=== PATIENT | male | born 1990 | race Caucasian/White ===

== ENCOUNTER 2017-07-10 02:11 | Emergency (ER) | payer OTHER ==
[2017-07-10] MEDS ORDERED: TORAdol 30 mg Injection IM ONE (02:27)
[2017-07-10] MEDS ORDERED: TORAdol 30 mg Injection ONE (02:49)
--- NOTE | 2017-07-10 02:53 | ERPHSYRPT ---
- History of Present Illness Time Seen by Provider: 07/10/17 02:47 Source: patient Exam Limitations: no limitations Patient Subjective Stated Complaint: pt states he was lifting at work, approx 50lb panels over his head and heard a pop and began having rt shoulder pain. states he saw the nurse at work who gave him some aleve and icy hot Triage Nursing Assessment: pt alert and oriented, asnwers questions approp. pt ambulatory with steady gait noted. respriations nonlabored with lungs cta. pt guarding rt shoulder and holding rt arm against side. radial pulse, cap refill, sensations to rt arm wnl. Physician History: 27 y/o male comes to the ER after lifting 50 lb pellet over his head and had right shoulder pain. Pt describes the pain as sharp, constant, 5/10, worse with movement and not relieved by advil. Occurred: just prior to arrival Method of Injury: other (over the head injury) Quality: constant Severity of Pain-Max: moderate Severity of Pain-Current: moderate Extremities Pain Location: shoulder: right Modifying Factors: Improves With: movement Associated Symptoms: none Allergies/Adverse Reactions: No Known Drug Allergies Allergy (Verified 07/10/17 02:27) Hx Tetanus, Diphtheria Vaccination/Date Given: Yes Hx Influenza Vaccination/Date Given: No Hx Pneumococcal Vaccination/Date Given: No Immunizations Up to Date: Yes - Review of Systems Constitutional: No Fever, No Chills Eyes: No Symptoms Ears, Nose, & Throat: No Symptoms Respiratory: No Cough, No Dyspnea Cardiac: No Chest Pain, No Edema, No Syncope Abdominal/Gastrointestinal: No Abdominal Pain, No Nausea, No Vomiting, No Diarrhea Genitourinary Symptoms: No Dysuria Musculoskeletal: Joint Pain, No Back Pain, No Neck Pain Skin: No Rash Neurological: No Dizziness, No Focal Weakness, No Sensory Changes Psychological: No Symptoms Endocrine: No Symptoms All Other Systems: Reviewed and Negative - Past Medical History Pertinent Past Medical History: No - Past Surgical History Past Surgical History: Yes Neuro Surgical History: No Pertinent History Cardiac: No Pertinent History Respiratory: No Pertinent History Gastrointestinal: No Pertinent History Genitourinary: No Pertinent History Musculoskeletal: Orthopedic Surgery Male Surgical History: No Pertinent History - Social History Smoking Status: Former smoker Exposure to second hand smoke: No Drug Use: none Patient Lives Alone: No - Nursing Vital Signs Nursing Vital Signs: Initial Vital Signs Temperature 97.6 F 07/10/17 02:14 Pulse Rate 81 07/10/17 02:14 Respiratory Rate 16 07/10/17 02:14 Blood Pressure 129/79 07/10/17 02:14 O2 Sat by Pulse Oximetry 99 07/10/17 02:14 Pain Scale Pain Intensity 5 - Physical Exam General Appearance: alert Eyes, Ears, Nose, Throat Exam: moist mucous membranes Neck Exam: non-tender, supple Cardiovascular/Respiratory Exam: chest non-tender, normal breath sounds, regular rate/rhythm, no respiratory distress Abdominal Exam: non-tender, No guarding Back Exam: normal inspection, No vertebral tenderness Shoulder Exam: bone tenderness, limited ROM Neuro/Tendon Exam: normal sensation, normal motor functions Mental Status Exam: alert, oriented x 3, cooperative Skin Exam: normal color, warm, dry SpO2: 99 Oxygen Delivery: Room Air - Course Nursing assessment & vital signs reviewed: Yes Ordered Tests: Active Orders 24 hr Category Date Time Status SHOULDER Stat Exams 07/10/17 Ordered Medication Summary Discontinued Medications Generic Name Dose Route Start Last Admin Trade Name Estefany PRN Reason Stop Dose Admin Ketorolac Tromethamine 60 mg 07/10/17 02:27 Toradol 30 Mg Injection IM 07/10/17 02:28 STAT ONE - Progress Progress: improved Progress Note: 07/10/17 02:50 The shoulder x ray is negative for fracture. Pt will be d/c home on toradol for pain. - Departure Time of Disposition: 02:51 Departure Disposition: Home Clinical Impression: Shoulder strain Qualifiers: Encounter type: initial encounter Laterality: right Qualified Code(s): S46.911A - Strain of unspecified muscle, fascia and tendon at shoulder and upper arm level, right arm, initial encounter Condition: Stable Critical Care Time: No Referrals: DOCTOR,NO FAMILY [Primary Care Provider] - Instructions: Shoulder Sprain Additional Instructions: Follow up with your primary care doctor for any further recommendations. Prescriptions: Ketorolac Tromethamine [Toradol] 10 mg PO QID PRN #20 tablet PRN Reason: Pain
[2017-07-10 03:13] VITALS: BP 117/77; PULSE 78; O2SAT 98
--- NOTE | 2017-07-10 08:50 | XRAY ---
Indication: Pain following injury. Comparison: None 3 views of the right shoulder demonstrates normal bones, articulation, and soft tissues.
== END 2017-07-10 03:12 | disposition home or self-care (01) ==
LOC: ED 02:11
DX: S46.911A Strain of unspecified muscle, fascia and tendon at shoulder and upper arm level, right arm, initial encounter (principal); X50.0XXA Overexertion from strenuous movement or load, initial encounter; Y92.63 Factory as the place of occurrence of the external cause; Y99.0 Civilian activity done for income or pay
CPT/HCPCS: 73030; 96372; 99284; J1885

== ENCOUNTER 2017-09-27 22:25 | Emergency (ER) | payer OTHER ==
[2017-09-27 22:40] VITALS: O2SAT 99
[2017-09-27] MEDS ORDERED: NORCO 5/325 MG PO ONE (22:55)
--- NOTE | 2017-09-27 23:01 | ERPHSYRPT ---
- History of Present Illness Time Seen by Provider: 09/27/17 22:45 Source: patient Exam Limitations: no limitations Patient Subjective Stated Complaint: reports foot pain since friday. states friday he walked 3 miles to [employer] and he thought that was why they hurt. states pain has not improved. reports pain is worse when he stands or walks. Triage Nursing Assessment: pt is aox3, ambulatory to cot with no difficulties, pupils perrl, resps are easy and non labored, skin pink warm and dry. pedal pulses strong and equal bilat, no edema apprectied. pt has good ROM to bilat lower extremities, sensation is intact. cap refill < 3 secs. Physician History: FOR THE PAST 4 DAYS PT HAS HAD BILATERAL HEEL PAIN AFTER WALKING 3 MILES IN WORK BOOTS TO [employer] THE DAY PRIOR TO SYMPTOMS. PT DENIES ANY TRAUMA TO THE LOWER EXTREMITIES AND DENIES NUMBNESS. ALSO PT HAS HAD PAIN IN THE LEFT ELBOW/ FOREARM SINCE YESTERDAY AFTER HIS GIRLFRIEND TWISTED HIS LEFT ARM WHILE SHE WAS IN LABOR. PT DENIES FEVER, VOMITING, BACK PAIN. Allergies/Adverse Reactions: No Known Drug Allergies Allergy (Verified 09/27/17 22:40) Hx Tetanus, Diphtheria Vaccination/Date Given: Yes Hx Influenza Vaccination/Date Given: No Hx Pneumococcal Vaccination/Date Given: No Immunizations Up to Date: Yes - Review of Systems Constitutional: No Fever Cardiac: No Chest Pain Abdominal/Gastrointestinal: No Vomiting Musculoskeletal: Other (BILATERAL HEEL PAIN; LEFT ELBOW/FOREARM PAIN.), No Back Pain Neurological: No Headache, No Sensory Changes All Other Systems: Reviewed and Negative - Past Medical History Pertinent Past Medical History: No - Past Surgical History Past Surgical History: Yes Neuro Surgical History: No Pertinent History Cardiac: No Pertinent History Respiratory: No Pertinent History Gastrointestinal: No Pertinent History Genitourinary: No Pertinent History Musculoskeletal: Other Male Surgical History: No Pertinent History Other Surgical History: wrist surgery d/t fractures - Social History Smoking Status: Never smoker Exposure to second hand smoke: No Drug Use: none Patient Lives Alone: No - Nursing Vital Signs Nursing Vital Signs: Initial Vital Signs Temperature 98.8 F 09/27/17 22:32 Pulse Rate 82 09/27/17 22:32 Respiratory Rate 18 09/27/17 22:32 Blood Pressure 121/73 09/27/17 22:32 O2 Sat by Pulse Oximetry 99 09/27/17 22:32 Pain Scale Pain Intensity 9 - Physical Exam General Appearance: alert Eye Exam: PERRL/EOMI Ears, Nose, Throat Exam: TMs normal, pharynx normal, moist mucous membranes Neck Exam: normal inspection, non-tender Respiratory Exam: normal breath sounds, lungs clear Cardiovascular Exam: normal heart sounds Gastrointestinal/Abdomen Exam: soft, normal bowel sounds Back Exam: normal inspection, normal range of motion, No vertebral tenderness Extremity Exam: normal range of motion, tenderness (MILD TENDERNESS OVER THE POSTERIOR PLANTAR ASPECT OF BOTH FEET WITHOUT EDEMA, BRUISING OR ERYTHEMA. MILD TENDERNESS OVER THE LEFT ELBOW WITHOUT EDEMA OR BRUISING.), No pedal edema Neurologic Exam: alert, cooperative, normal mood/affect, sensation nml, No motor deficits, No motor weakness Skin Exam: warm, dry SpO2 Interpretation: normal SpO2: 99 Oxygen Delivery: Room Air - Course Nursing assessment & vital signs reviewed: Yes - Radiology Exams Left Elbow X-ray Interpretation: Interpreted by me, No Fracture Left Forearm X-ray Interpretation: Interpreted by me, No Fracture Ordered Tests: Active Orders 24 hr Category Date Time Status Ney Bandage Application -[facility] STAT Care 09/27/17 22:54 Active Sling Application STAT Care 09/27/17 22:54 Active ELBOW (MINIMUM 3 VIEWS) Stat Exams 09/27/17 22:54 Ordered FOREARM Stat Exams 09/27/17 22:54 Ordered Medication Summary Discontinued Medications Generic Name Dose Route Start Last Admin Trade Name Freq PRN Reason Stop Dose Admin Hydrocodone Bitart/Acetaminophen 2 tab 09/27/17 22:55 [place] 5/325 Mg PO 09/27/17 22:56 STAT ONE - Departure Time of Disposition: 23:15 Departure Disposition: Home Clinical Impression: PLANTAR FASCIITIS OF BOTH FEET, SPRAIN OF LEFT ELBOW. Condition: Stable Critical Care Time: No Referrals: DOCTOR,NO FAMILY [Primary Care Provider] - Instructions: Plantar Fasciitis, Elbow Sprain Additional Instructions: FOLLOW UP WITH PRIVATE DOCTOR TOMORROW. WEAR LEFT ARM SLING FOR COMFORT. LIMIT WALKING. Prescriptions: Naproxen [Naprosyn] 500 mg PO [id number] PRN #20 tablet PRN Reason: Pain
[2017-09-27] MEDS ORDERED: NORCO 5/325 MG ONE (23:15)
[2017-09-27 23:27] VITALS: BP 113/67; PULSE 90
--- NOTE | 2017-09-28 09:03 | XRAY ---
Indication: Pain following twisting injury. Comparison: None 3 views of the left elbow obtained. No bony, articular, or soft tissue abnormalities.
--- NOTE | 2017-09-28 09:03 | XRAY ---
Indication: Pain following twisting injury. Comparison: None 2 views of the left forearm obtained. No bony, articular, or soft tissue abnormalities.
== END 2017-09-27 23:35 | disposition home or self-care (01) ==
LOC: ED 22:25
DX: M72.2 Plantar fascial fibromatosis (principal); S53.402A Unspecified sprain of left elbow, initial encounter; X50.0XXA Overexertion from strenuous movement or load, initial encounter
CPT/HCPCS: 73080; 73090; 99283; A9270-GY

== ENCOUNTER 2018-08-11 19:55 | Emergency (ER) | payer OTHER ==
[2018-08-11] MEDS ORDERED: TORAdol 30 mg Injection IV ONE (20:13)
[2018-08-11] MEDS ORDERED: TORAdol 30 mg Injection ONE (20:16)
--- NOTE | 2018-08-11 20:25 | ERPHSYRPT ---
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 Triage Nursing Assessment: pt a&o x3; skin p, w, & d; no other distress noted; ambulated to room per self; spouse at bedside. Physician History: Pt states, he developed pain in his left shoulder blade yesterday after loading bricks, radiating to his left chest. He went to [facility] ED in [place] this morning, X rays were done and diagnosed with musculoskeletal pain. He is still in pain so he came here. He denies cough, SOB, nausea, vomiting, fever, other complaints. Occurred: yesterday Method of Injury: other (loading bricks) Quality: constant Severity of Pain-Max: severe Severity of Pain-Current: severe Extremities Pain Location: shoulder: left Modifying Factors: Improves With: movement Associated Symptoms: chest pain Allergies/Adverse Reactions: No Known Drug Allergies Allergy (Verified 08/11/18 20:13) Hx Tetanus, Diphtheria Vaccination/Date Given: Yes Hx Influenza Vaccination/Date Given: No Hx Pneumococcal Vaccination/Date Given: No Immunizations Up to Date: No - Review of Systems Constitutional: No Symptoms Cardiac: Chest Pain Musculoskeletal: Other (left shoulder pain) All Other Systems: Reviewed and Negative - Past Medical History Pertinent Past Medical History: No - Past Surgical History Past Surgical History: Yes Neuro Surgical History: No Pertinent History Cardiac: No Pertinent History Respiratory: No Pertinent History Gastrointestinal: No Pertinent History Genitourinary: No Pertinent History Musculoskeletal: Other Male Surgical History: No Pertinent History Other Surgical History: wrist surgery d/t fractures - Social History Smoking Status: Current every day smoker How long have you smoked: 3 Exposure to second hand smoke: No Drug Use: none Patient Lives Alone: No - Nursing Vital Signs Nursing Vital Signs: Initial Vital Signs Temperature 97.7 F 08/11/18 20:02 Pulse Rate 88 08/11/18 20:02 Respiratory Rate 18 08/11/18 20:02 Blood Pressure 122/79 08/11/18 20:02 O2 Sat by Pulse Oximetry 99 08/11/18 20:02 Pain Scale Pain Intensity 8 - Physical Exam General Appearance: no apparent distress Eyes, Ears, Nose, Throat Exam: normal ENT inspection, moist mucous membranes Neck Exam: normal inspection, non-tender, supple Cardiovascular/Respiratory Exam: normal breath sounds, regular rate/rhythm, heart sounds normal, no ecchymosis, no JVD, no respiratory distress, rib tenderness (left anterior chest, no swelling, discoloration, no crepitations, or subcut. emphysema.), normal peripheral pulses, No subcutaneous emphysema, No JVD Abdominal Exam: non-tender, soft, no organomegaly Back Exam: normal inspection, No CVA tenderness Shoulder Exam: normal inspection, no evidence of injury, bone tenderness (left scapula, no swelling or ecchymosis), No deformity, No ecchymosis Elbow/Forearm Exam: normal inspection, non-tender Neuro/Tendon Exam: normal sensation, normal motor functions Mental Status Exam: alert, oriented x 3 Skin Exam: normal color, warm, dry, No rash SpO2 Interpretation: normal SpO2: 99 Oxygen Delivery: Room Air - Course Nursing assessment & vital signs reviewed: Yes EKG Interpreted by Me: RATE (70/min), Sinus Rhythm, NORMAL AXIS, NORMAL INTERVALS, NORMAL ST-T - Radiology Exams Chest X-ray Interpretation: Interpreted by me, Negative Left Shoulder X-ray Interpretation: Interpreted by me, Negative Ordered Tests: Active Orders 24 hr Category Date Time Status EKG-ER Only STAT Care 08/11/18 20:11 Active IV Insertion STAT Care 08/11/18 20:11 Active CHEST 2 VIEWS (PA AND LAT) Stat Exams 08/11/18 20:12 Taken SHOULDER Stat Exams 08/11/18 20:13 Taken CBC W DIFF Stat Lab 08/11/18 20:30 Completed CK-Creatinine Phosphokinase Stat Lab 08/11/18 20:30 Completed CMP Stat Lab 08/11/18 20:30 Completed D-DIMER QUANTITATION Stat Lab 08/11/18 20:30 Completed TROPONIN Q3H Lab 08/11/18 20:30 Completed TROPONIN Q3H Lab 08/11/18 23:15 Ordered TROPONIN Q3H Lab 08/12/18 02:15 Ordered TROPONIN Q3H Lab 08/12/18 05:15 Ordered TROPONIN Q3H Lab 08/12/18 08:15 Ordered Urine Triage Profile Stat Lab 08/11/18 20:12 Uncollected Medication Summary Discontinued Medications Generic Name Dose Route Start Last Admin Trade Name Freq PRN Reason Stop Dose Admin Ketorolac Tromethamine 30 mg 08/11/18 20:13 08/11/18 20:20 Toradol 30 Mg Injection IV 08/11/18 20:14 30 mg STAT ONE Administration Ketorolac Tromethamine Confirm 08/11/18 20:16 Toradol 30 Mg Injection Administered 08/11/18 20:17 Dose 30 mg .ROUTE .STK-MED ONE Lab/Rad Data: Laboratory Result Diagrams 08/11/18 20:30 08/11/18 20:30 Laboratory Results 08/11/18 08/11/18 08/11/18 Range/Units 20:30 20:30 20:30 WBC (4.0-10.5) K/mm3 RBC (4.1-5.6) M/mm3 Hgb (12.5-18.0) gm/dl Hct (42-50) % MCV (78-100) fl MCH (26-32) pg MCHC (32-36) g/dl RDW (11.5-14.0) % Plt Count (150-450) K/mm3 MPV (6-9.5) fl Gran % (36.0-66.0) % Eos # (Auto) (0-0.5) Absolute Lymphs (auto) (1.0-4.6) Absolute Monos (auto) (0.0-1.3) Lymphocytes % (24.0-44.0) % Monocytes % (0.0-12.0) % Eosinophils % (0.00-5.0) % Basophils % (0.0-0.4) % Absolute Granulocytes (1.4-6.9) Basophils # (0-0.4) D-Dimer 238 (215-500) ng/mL Sodium 142 (137-145) mmol/L Potassium 4.1 (3.5-5.1) mmol/L Chloride 105 (98-107) mmol/L Carbon Dioxide 27 (22-30) mmol/L Anion Gap 14.1 (5-15) MEQ/L BUN 15 (9-20) mg/dL Creatinine 0.77 (0.66-1.25) mg/dL Estimated GFR > 60.0 ML/MIN Glucose 94 (74-106) mg/dL Calcium 9.6 (8.4-10.2) mg/dL Total Bilirubin 0.80 (0.2-1.3) mg/dL AST 38 (17-59) U/L ALT 27 (0-50) U/L Alkaline Phosphatase 55 (38-126) U/L Creatine Kinase 693 H (55-170) U/L Troponin I < 0.012 (0.000-0.034) ng/mL Serum Total Protein 7.1 (6.3-8.2) g/dL Albumin 4.5 (3.5-5.0) g/dL 08/11/18 Range/Units 20:30 WBC 9.1 (4.0-10.5) K/mm3 RBC 4.88 (4.1-5.6) M/mm3 Hgb 15.7 (12.5-18.0) gm/dl Hct 44.8 (42-50) % MCV 91.8 (78-100) fl MCH 32.2 H (26-32) pg MCHC 35.0 (32-36) g/dl RDW 13.5 (11.5-14.0) % Plt Count 201 (150-450) K/mm3 MPV 10.1 H (6-9.5) fl Gran % 69.6 H (36.0-66.0) % Eos # (Auto) 0.14 (0-0.5) Absolute Lymphs (auto) 1.83 (1.0-4.6) Absolute Monos (auto) 0.77 (0.0-1.3) Lymphocytes % 20.2 L (24.0-44.0) % Monocytes % 8.5 (0.0-12.0) % Eosinophils % 1.5 (0.00-5.0) % Basophils % 0.2 (0.0-0.4) % Absolute Granulocytes 6.31 (1.4-6.9) Basophils # 0.02 (0-0.4) D-Dimer (215-500) ng/mL Sodium (137-145) mmol/L Potassium (3.5-5.1) mmol/L Chloride (98-107) mmol/L Carbon Dioxide (22-30) mmol/L Anion Gap (5-15) MEQ/L BUN (9-20) mg/dL Creatinine (0.66-1.25) mg/dL Estimated GFR ML/MIN Glucose (74-106) mg/dL Calcium (8.4-10.2) mg/dL Total Bilirubin (0.2-1.3) mg/dL AST (17-59) U/L ALT (0-50) U/L Alkaline Phosphatase (38-126) U/L Creatine Kinase (55-170) U/L Troponin I (0.000-0.034) ng/mL Serum Total Protein (6.3-8.2) g/dL Albumin (3.5-5.0) g/dL - Progress Progress: unchanged Progress Note: 08/11/18 21:32 Pt has been stable, no severe pain, distress, afebrile. I discussed our results with him and his , discharge him to rest x 2-3 days, apply moist heat to muscles, and return if severe pain, shortness of breath or fever > 102 F or follow up with his doctor next week. Counseled pt/family regarding: lab results, diagnosis, need for follow-up, rad results - Departure Time of Disposition: 21:33 Departure Disposition: Home Clinical Impression: Chest wall pain Shoulder strain Qualifiers: Encounter type: initial encounter Laterality: left Qualified Code(s): S46.912A - Strain of unspecified muscle, fascia and tendon at shoulder and upper arm level, left arm, initial encounter Condition: Stable Critical Care Time: No Referrals: DOCTOR,NO FAMILY [Primary Care Provider] - Instructions: Shoulder Sprain (DC), Costochondritis (DC) Additional Instructions: Rest x 2-3 days, apply moist heat to painful area, return if severe pain, shortness of breath, fever> 102 F, follow up with your physician next week! Forms: Work/School Release Form Prescriptions: Cyclobenzaprine HCl 10 mg [Cyclobenzaprine 10 MG] 10 mg PO TID #15 tablet
[2018-08-11 21:10] LABS: BASOPHIL % 0.2 % (0.0-0.4); Basophil (Absolute #) 0.02 (0-0.4); Eosinophil % 1.5 % (0.00-5.0); Eosinophil (Absolute #) 0.14 (0-0.5); Granulocyte Absolute (ANC) 6.31 (1.4-6.9); Granulocytes % 69.6 % (36.0-66.0); Hematocrit 44.8 % (42-50); Hemoglobin 15.7 gm/dl (12.5-18.0); Lymphocyte (Absolute #) 1.83 (1.0-4.6); Lymphocytes % 20.2 % (24.0-44.0); Mean Cell Volume 91.8 fl (78-100); Mean Corpuscular Hemoglobin 32.2 pg (26-32); Mean Platelet Volume 10.1 fl (6-9.5); Monocyte (Absolute #) 0.77 (0.0-1.3); Monocytes % 8.5 % (0.0-12.0); Platelet Count 201 K/mm3 (150-450); Red Blood Count 4.88 M/mm3 (4.1-5.6); Red Cell Distribution Width 13.5 % (11.5-14.0); White Blood Count 9.1 K/mm3 (4.0-10.5)
[2018-08-11 21:13] LABS: ALBUMIN 4.5 g/dL (3.5-5.0); ALKALINE PHOSPHATASE 55 U/L (38-126); ANION GAP 14.1 MEQ/L (5-15); BLOOD UREA NITROGEN 15 mg/dL (9-20); CHLORIDE 105 mmol/L (98-107); CK-Creatinine Phosphokinase 693 U/L (55-170); Calcium 9.6 mg/dL (8.4-10.2); Carbon Dioxide 27 mmol/L (22-30); Creatinine 1 0.77 mg/dL (0.66-1.25); Glucose 94 mg/dL (74-106); Potassium 4.1 mmol/L (3.5-5.1); SGOT/AST 38 U/L (17-59); SGPT/ALT 27 U/L (0-50); SODIUM 142 mmol/L (137-145); Total Protein 7.1 g/dL (6.3-8.2)
[2018-08-11 21:53] VITALS: BP 111/68; PULSE 78; O2SAT 98
[2018-08-11 22:27] LABS: Amphetamine,Urine NEGATIVE (NEGATIVE); Barbiturate,Urine NEGATIVE (NEGATIVE); Benzodiazepine,Urine NEGATIVE (NEGATIVE); Cocaine,Urine NEGATIVE (NEGATIVE); Methadone,Urine NEGATIVE (NEGATIVE); Opiate,Urine NEGATIVE (NEGATIVE); PCP,Urine NEGATIVE (NEGATIVE); THC,Urine NEGATIVE (NEGATIVE)
--- NOTE | 2018-08-12 09:10 | XRAY ---
Indication: Scapular pain. Overuse injury. Comparison: None 3 views of the left shoulder obtained. No bony, articular, or soft tissue abnormalities.
--- NOTE | 2018-08-12 09:12 | XRAY ---
Indication: Chest pain. Comparison: None PA/lateral chest demonstrates normal heart and lungs. Bony thorax intact.
== END 2018-08-11 21:50 | disposition home or self-care (01) ==
LOC: ED 19:55
DX: R07.9 Chest pain, unspecified (principal); S46.912A Strain of unspecified muscle, fascia and tendon at shoulder and upper arm level, left arm, initial encounter; M25.512 Pain in left shoulder; Z72.0 Tobacco use
CPT/HCPCS: 36000; 36415; 71046; 73030; 80053; 80307; 82550; 84484; 85025; 85379; 93005; 96374; 99284; J1885

== ENCOUNTER 2019-01-08 05:27 | Emergency (ER) | payer MEDICAID, OTHER ==
[2019-01-08 05:57] VITALS: BP 113/66; PULSE 81; O2SAT 97
--- NOTE | 2019-01-08 06:17 | ERPHSYRPT ---
- History of Present Illness Time Seen by Provider: 01/08/19 06:08 Source: patient Exam Limitations: no limitations Patient Subjective Stated Complaint: Earache in L ear for 3 days thats getting worse, works at [employer] around loud noises, when around loud noises he develops pain that radiates up in his head, little hearing loss, states also wants to get his R shoulder looked at d/t pain for 3 weeks, also numbness and swelling, does not recall injurying it Triage Nursing Assessment: pt a/o, ambulates per self, hears nurse in normal tone, ear does not appear to be red, wax noted, no drainage. No redness, swelling or deformities in R arm, cap refill <3 secs, sensation WNL Physician History: The patient is a 28-year-old male complaining of worsening bilateral ear pain for 3 days. He had a cough and cold about a week ago. Sometimes he feels like his hearing loss. He also complains of right shoulder and arm pain that developed about 3 weeks ago. He thinks this started at work or uses I have you and other equipment with his right arm. Timing/Duration: gradual onset, days (3) Severity: mild ENT Location: ear (L) Prearrival Treatment: no prearrival treatment Modifying Factors: Improves With: nothing Associated Symptoms: ear pain (L), change in hearing, No sore throat Allergies/Adverse Reactions: No Known Drug Allergies Allergy (Verified 08/11/18 20:13) Hx Tetanus, Diphtheria Vaccination/Date Given: Yes Hx Influenza Vaccination/Date Given: No Hx Pneumococcal Vaccination/Date Given: No - Review of Systems Constitutional: No Fever, No Chills Eyes: No Symptoms Ears, Nose, & Throat: Ear Pain, Hearing Changes Respiratory: No Cough, No Dyspnea Cardiac: No Chest Pain, No Edema, No Syncope Abdominal/Gastrointestinal: No Abdominal Pain, No Nausea, No Vomiting, No Diarrhea Genitourinary Symptoms: No Dysuria Musculoskeletal: Myalgias Skin: No Rash Neurological: No Dizziness, No Focal Weakness, No Sensory Changes Psychological: No Symptoms Endocrine: No Symptoms Hematologic/Lymphatic: No Symptoms Immunological/Allergic: No Symptoms All Other Systems: Reviewed and Negative - Past Medical History Pertinent Past Medical History: No - Past Surgical History Past Surgical History: Yes Neuro Surgical History: No Pertinent History Cardiac: No Pertinent History Respiratory: No Pertinent History Gastrointestinal: No Pertinent History Genitourinary: No Pertinent History Musculoskeletal: Other Male Surgical History: No Pertinent History Other Surgical History: wrist surgery d/t fractures, R arm - Social History Smoking Status: Current every day smoker How long have you smoked: 2 yrs Exposure to second hand smoke: No Drug Use: none Patient Lives Alone: No - Nursing Vital Signs Nursing Vital Signs: Initial Vital Signs Temperature 97.6 F 01/08/19 05:37 Pulse Rate 81 01/08/19 05:37 Respiratory Rate 18 01/08/19 05:37 Blood Pressure 113/66 01/08/19 05:37 O2 Sat by Pulse Oximetry 97 01/08/19 05:37 Pain Scale Pain Intensity 8 - Physical Exam General Appearance: no apparent distress, alert Eye Exam: bilateral eye: PERRL, EOMI Ear Exam: right ear: TM normal, left ear: TM red, bilateral ear: auricle normal , canal normal Nasal Exam: normal inspection Throat Exam: pharynx normal, moist mucus membranes, No tonsillar exudate Neck Exam: supple Cardiovascular/Respiratory Exam: normal breath sounds, regular rate/rhythm Abdominal Exam: non-tender, soft Neurologic Exam: alert, oriented x 3, cooperative, nml cerebellar function, sensation nml, other (The patient moves his right arm and forearm without difficulty. There are no sensory deficits.), No motor deficits Skin Exam: normal color, warm, dry SpO2 Interpretation: normal SpO2: 97 O2 Delivery: Room Air - Progress Progress: improved - Departure Time of Disposition: 06:20 Departure Disposition: Home Clinical Impression: Left nonsuppurative otitis media, Right arm pain Condition: Stable Critical Care Time: No Referrals: DOCTOR,NO FAMILY [Primary Care Provider] - Additional Instructions: You have a mild infection in her left ear. He also have some right arm pain. You were given Toradol 60 mg by IM. Take amoxicillin 500 mg 3 times a day for 10 days. Take naproxen 500 mg 2 times a day as needed. Follow-up with your primary medical doctor as needed. Prescriptions: Amoxicillin [Amoxil] 500 mg PO TID #30 capsule Naproxen 500 mg [Naprosyn 500 MG] 500 mg PO BIDPRN PRN #30 tablet MDD 2 PRN Reason: Pain
[2019-01-08] MEDS ORDERED: TORAdol 30 mg Injection IM ONE (06:21)
[2019-01-08] MEDS ORDERED: TORAdol 30 mg Injection ONE (06:26)
== END 2019-01-08 06:51 | disposition home or self-care (01) ==
LOC: ED 05:27
DX: H65.92 Unspecified nonsuppurative otitis media, left ear (principal)
CPT/HCPCS: 96372; 99283; J1885

== ENCOUNTER 2019-06-23 21:56 | Emergency (ER) | payer SELFPAY | END 2019-06-23 22:34 | disposition left against medical advice (07) | LOC: ED 21:56 | DX: Z53.9 Procedure and treatment not carried out, unspecified reason (principal) | CPT/HCPCS: 99281 ==

== ENCOUNTER 2019-06-24 14:02 | Emergency (ER) | payer SELFPAY ==
[2019-06-24 16:39] VITALS: PULSE 66
--- NOTE | 2019-06-24 17:11 | ERPHSYRPT ---
- History of Present Illness Time Seen by Provider: 06/24/19 16:45 Source: patient Exam Limitations: no limitations Patient Subjective Stated Complaint: Pt states "I am not sure if it is my ear or a tooth, but my right upper jaw is killing me. I was here last night and it was to busy so I though I would go to [facility] today and they would not see me because of my insurance and I cannot pay sotomayor today so I am here." Triage Nursing Assessment: Pt presented alert and oriented X 3, skin pwd Pt ambulates with an upright steady gait, able to speak in clear full sentences. PT in no apparent respiratory distress. Physician History: 28 y/o white male presents with right earache. present for 5 days. no fever. has had ear infections in the past. Timing/Duration: gradual onset Severity: moderate ENT Location: ear (R) Prearrival Treatment: no prearrival treatment Modifying Factors: Improves With: nothing Associated Symptoms: ear pain (R) Allergies/Adverse Reactions: No Known Drug Allergies Allergy (Verified 08/11/18 20:13) Hx Tetanus, Diphtheria Vaccination/Date Given: Yes Hx Influenza Vaccination/Date Given: No Hx Pneumococcal Vaccination/Date Given: No Immunizations Up to Date: Yes - Review of Systems Constitutional: No Symptoms Eyes: No Symptoms Ears, Nose, & Throat: Ear Pain (right) Respiratory: No Symptoms Cardiac: No Symptoms Abdominal/Gastrointestinal: No Symptoms Genitourinary Symptoms: No Symptoms Musculoskeletal: No Symptoms Skin: No Symptoms Neurological: No Symptoms Psychological: No Symptoms Endocrine: No Symptoms Hematologic/Lymphatic: No Symptoms Immunological/Allergic: No Symptoms All Other Systems: Reviewed and Negative - Past Medical History Pertinent Past Medical History: No Neurological History: No Pertinent History ENT History: No Pertinent History Cardiac History: No Pertinent History Respiratory History: No Pertinent History Endocrine Medical History: No Pertinent History Musculoskeletal History: No Pertinent History GI Medical History: No Pertinent History History: No Pertinent History Psycho-Social History: No Pertinent History Male Reproductive Disorders: No Pertinent History - Past Surgical History Past Surgical History: Yes Neuro Surgical History: No Pertinent History Cardiac: No Pertinent History Respiratory: No Pertinent History Gastrointestinal: No Pertinent History Genitourinary: No Pertinent History Musculoskeletal: Other Male Surgical History: No Pertinent History Other Surgical History: wrist surgery d/t fractures, R arm - Social History Smoking Status: Current every day smoker How long have you smoked: 1.5 Exposure to second hand smoke: Yes Drug Use: none Patient Lives Alone: No - Nursing Vital Signs Nursing Vital Signs: Initial Vital Signs Temperature 98.1 F 06/24/19 14:10 Pulse Rate 87 06/24/19 14:10 Respiratory Rate 18 06/24/19 14:10 Blood Pressure 117/77 06/24/19 14:10 O2 Sat by Pulse Oximetry 98 06/24/19 14:10 Pain Scale Pain Intensity 0 - Physical Exam General Appearance: no apparent distress, alert, anxiety Eye Exam: bilateral eye: normal inspection, PERRL, EOMI Ear Exam: right ear: tenderness, TM red, left ear: canal normal, TM normal, bilateral ear: auricle normal Nasal Exam: normal inspection Throat Exam: normal, pharynx normal Neck Exam: normal inspection, non-tender, supple, full range of motion Cardiovascular/Respiratory Exam: chest non-tender, normal breath sounds, regular rate/rhythm Abdominal Exam: non-tender Neurologic Exam: alert, oriented x 3, cooperative, supervisor drapery hanging II-XII nml as tested Skin Exam: normal color, warm, dry SpO2: 96 O2 Delivery: Room Air - Course Nursing assessment & vital signs reviewed: Yes - Progress Progress: unchanged Counseled pt/family regarding: diagnosis, need for follow-up - Departure Departure Disposition: Home Clinical Impression: Right otitis media Condition: Stable Critical Care Time: No Referrals: DOCTOR,NO FAMILY [Primary Care Provider] - Additional Instructions: add ibuprofen for pain. follow up with primary doctor for persistent symptoms Prescriptions: Hydrocodone/APAP 5/325 [[place] 5/325 mg] 1 each PO Q6H PRN PRN #8 tablet MDD 4 PRN Reason: Pain Azithromycin 250 mg [Zithromax 250 MG TABLET] 250 mg PO ZPACK #6 tablet
[2019-06-24 17:29] VITALS: BP 129/89; O2SAT 98
== END 2019-06-24 17:20 | disposition home or self-care (01) ==
LOC: ED 14:02
DX: H66.91 Otitis media, unspecified, right ear (principal)
CPT/HCPCS: 99283